=== PATIENT | female | born 1985 | race Caucasian/White ===

== ENCOUNTER 2017-09-27 20:49 | Emergency (ER) | payer BC ==
[2017-09-27] MEDS ORDERED: Albuterol/Ipratropium 3.0-0.5 MG/3 ML Neb Soln NEB ONE (21:02)
--- NOTE | 2017-09-27 21:05 | EDM.PDOC ---
ED HPI GENERAL MEDICAL PROBLEM - General Chief Complaint: Respiratory Problem Stated Complaint: COUGH, [id number] Time Seen by Provider: 09/27/17 21:03 Source of Information: Reports: Patient History Limitations: Reports: No Limitations - History of Present Illness INITIAL COMMENTS - FREE TEXT/NARRATIVE: coughing alot past few days, worried about pneumonia - Related Data Allergies Allergy/AdvReac Type Severity Reaction Status Date / Time azithromycin Allergy Hives Verified 09/27/17 22:01 ED ROS GENERAL - Review of Systems Review Of Systems: ROS reveals no pertinent complaints other than HPI. ED EXAM, GENERAL - Physical Exam Exam: See Below Exam Limited By: No Limitations General Appearance: Alert, WD/WN, Mild Distress, Other (episodic cough spasm) Ears: Hearing Grossly Normal Throat/Mouth: Normal Inspection, Normal Voice, No Airway Compromise Head: Atraumatic, Normocephalic Neck: Non-Tender, Full Range of Motion Respiratory/Chest: No Respiratory Distress, No Accessory Muscle Use, Rhonchi, Wheezing. No: Decreased Breath Sounds Cardiovascular: Regular Rate, Rhythm GI/Abdominal: Soft, Non-Tender Neurological: Alert, Oriented, Normal Cognition, Normal Gait, No Motor/Sensory Deficits Psychiatric: Flat Affect Skin Exam: Warm, Dry, Normal Color Lymphatic: No Adenopathy Course - Vital Signs Last Recorded V/S: Last Vital Signs Temp 37.3 C 09/27/17 20:58 Pulse 82 09/27/17 20:58 Resp 20 09/27/17 20:58 BP 154/80 H 09/27/17 20:58 Pulse Ox 95 09/27/17 20:58 - Orders/Labs/Meds Orders: Active Orders 24 hr Category Date Time Status RT Aerosol Therapy [RC] ASDIRECTED Care 09/27/17 21:02 Active Amoxicillin [Amoxil] Med 09/27/17 22:03 Once 250 mg PO ONETIME ONE Meds: Medications Discontinued Medications Generic Name Dose Route Start Last Admin Trade Name Freq PRN Reason Stop Dose Admin Albuterol/Ipratropium 3 ml 09/27/17 21:02 09/27/17 21:05 Duoneb 3.0-0.5 Mg/3 Ml NEB 09/27/17 21:03 3 ml ONETIME ONE Administration Promethazine HCl/Codeine 5 ml 09/27/17 21:42 09/27/17 21:50 Phenergan With Codeine PO 09/27/17 21:43 5 ml ONETIME ONE Administration - Re-Assessments/Exams Free Text/Narrative Re-Assessment/Exam: 09/27/17 22:04 results discussed with pt who is feeling better post neb but now has cough spasms Departure - Departure Time of Disposition: 22:04 Disposition: Home, Self-Care 01 Condition: Good Clinical Impression: Bronchospasm with bronchitis, acute - Discharge Information Instructions: Acute Bronchitis, [id number] Forms: ED Department Discharge Additional Instructions: 1) rest 2) don't sleep flat at night 3) try humidifier in bedroom 4) follow up at clinic or recheck as needed rx given; amox 250mg tid x 30 phenergan codeine syrup qid prn x 4oz albuterol 2.5mg solution tid prn x 1 box - My Orders Last 24 Hours: My Active Orders 09/27/17 21:02 RT Aerosol Therapy [RC] ASDIRECTED 09/27/17 22:03 Amoxicillin [Amoxil] 250 mg PO ONETIME ONE - Assessment/Plan Last 24 Hours: My Active Orders 09/27/17 21:02 RT Aerosol Therapy [RC] ASDIRECTED 09/27/17 22:03 Amoxicillin [Amoxil] 250 mg PO ONETIME ONE
[2017-09-27] MEDS ORDERED: Codeine/Promethazine 10-6.25 MG/5 ML Syrup 5 ML UD Cup PO ONE (21:42)
[2017-09-27] MEDS ORDERED: Amoxicillin 250 MG Cap PO ONE (22:03)
== END 2017-09-27 22:20 | disposition home or self-care (01) ==
LOC: DL.ED 20:49
DX: J20.9 Acute bronchitis, unspecified (principal)
CPT/HCPCS: 71020; 94640; 99283; A9270

== ENCOUNTER 2025-04-09 11:26 | Emergency (ER) | payer BC, OTHER | END 2025-04-09 13:23 | disposition home or self-care (01) | LOC: DL.ED 11:26 | DX: S80.01XA Contusion of right knee, initial encounter (principal); Z88.1 Allergy status to other antibiotic agents; E66.01 Morbid (severe) obesity due to excess calories; Z68.42 Body mass index [BMI] 45.0-49.9, adult; X58.XXXA Exposure to other specified factors, initial encounter; Y99.0 Civilian activity done for income or pay | CPT/HCPCS: 73562-RT; 99283 ==